=== PATIENT | female | born 1970 | race Caucasian/White ===

== ENCOUNTER 2017-03-27 14:59 | Emergency (ER) | payer OTHER ==
[2017-03-27] MEDS ORDERED: MOTRIN 600 MG PO ONE (15:22)
[2017-03-27] MEDS ORDERED: Zithromax 250 MG TABLET PO ONE (15:22)
[2017-03-27] MEDS ORDERED: MOTRIN 600 MG ONE (15:27)
[2017-03-27] MEDS ORDERED: Zithromax 250 MG TABLET ONE (15:27)
--- NOTE | 2017-03-27 15:28 | ERPHSYRPT ---
- History of Present Illness Time Seen by Provider: 03/27/17 15:16 Source: patient Exam Limitations: no limitations Patient Subjective Stated Complaint: Pt C/O left ear pain that radiates into the side of her face x 4 days. Rates pain 8/10. Triage Nursing Assessment: Pt alert, oriented, answers all questions appropriately. skin pink, warm, dry. Resps non-labored. Pt ambulatory to tx room with steady gait noted holding left side of face. Physician History: FOR THE PAST 4 DAYS PT HAS HAD A LEFT EARACHE; FOR THE PAST 2 DAYS A NON- PRODUCTIVE COUGH. PT DENIES FEVER, CHEST PAIN, NAUSEA, ABDOMINAL PAIN. Allergies/Adverse Reactions: Iodinated Contrast- Oral and IV Dye [IV Dye, Iodine Containing Contrast ] Allergy (Verified 03/27/17 15:15) Shellfish *RETIRED-07/19/12 [Shellfish] Allergy (Verified 03/27/17 15:15) Home Medications: Citalopram Hydrobromide 20 mg* [ceLEXa 20 MG] 20 mg PO DAILY 11/03/13 [ History] Fluticasone/Salmeterol [Advair 250-50 Diskus] 1 each IH DAILY 05/24/14 [History] Albuterol 8 gm Mdi Hfa [Ventolin Hfa MDI] 2 puff IH DAILY 06/12/14 [ History] Metoprolol Tartrate 50 mg PO DAILY 03/28/16 [History] Hx Tetanus, Diphtheria Vaccination/Date Given: Yes (up to date) Hx Influenza Vaccination/Date Given: No Hx Pneumococcal Vaccination/Date Given: No Immunizations Up to Date: Yes - Review of Systems Constitutional: No Fever Ears, Nose, & Throat: Ear Pain Respiratory: Cough, No Dyspnea Cardiac: No Chest Pain Abdominal/Gastrointestinal: No Abdominal Pain, No Nausea, No Vomiting All Other Systems: Reviewed and Negative - Past Medical History Pertinent Past Medical History: Yes Neurological History: No Pertinent History ENT History: No Pertinent History Cardiac History: Hypertension Respiratory History: Asthma, COPD Endocrine Medical History: No Pertinent History Musculoskeletal History: Degenerative Disk Disease, Other GI Medical History: GERD History: No Pertinent History Psycho-Social History: Depression Female Reproductive Disorders: No Pertinent History Other Medical History: chronic back pain - Past Surgical History Past Surgical History: Yes Neuro Surgical History: No Pertinent History Cardiac: No Pertinent History Respiratory: No Pertinent History Gastrointestinal: Appendectomy Musculoskeletal: No Pertinent History Female Surgical History: Section Other Surgical History: RT OOPHORECTOMY ET 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 - Social History Smoking Status: Unknown if ever smoked How long have you smoked: 25 Exposure to second hand smoke: No Drug Use: none Patient Lives Alone: No - Female History Hx Now: No - Nursing Vital Signs Nursing Vital Signs: Initial Vital Signs Temperature 98.6 F 03/27/17 15:12 Pulse Rate 79 03/27/17 15:12 Respiratory Rate 16 03/27/17 15:12 Blood Pressure 160/112 03/27/17 15:12 O2 Sat by Pulse Oximetry 96 03/27/17 15:12 Pain Scale Pain Intensity 8 - Physical Exam General Appearance: alert Eye Exam: PERRL/EOMI Ears, Nose, Throat Exam: moist mucous membranes, TM abnormal (L) (LEFT TM ERYTHEMATOUS), pharyngeal erythema Neck Exam: normal inspection Respiratory Exam: lungs clear Cardiovascular Exam: normal heart sounds Gastrointestinal/Abdomen Exam: soft, normal bowel sounds Back Exam: normal range of motion Neurologic Exam: alert, cooperative Skin Exam: warm, dry SpO2 Interpretation: normal SpO2: 96 Oxygen Delivery: Room Air - Course Nursing assessment & vital signs reviewed: Yes Ordered Tests: Medication Summary Generic Name Dose Route Start Last Admin Trade Name Freq PRN Reason Stop Dose Admin Azithromycin 500 mg 03/27/17 15:22 Zithromax 250 Mg Tablet PO 03/27/17 15:23 STAT ONE Ibuprofen 600 mg 03/27/17 15:22 Motrin 600 Mg PO 03/27/17 15:23 STAT ONE - Departure Time of Disposition: 15:28 Departure Disposition: Home Clinical Impression: LOM, PHARYNGITIS Condition: Stable Critical Care Time: No Referrals: Provider,Unknown [Primary Care Provider] - Instructions: Otitis Media (Middle Ear Infection) Additional Instructions: FOLLOW UP WITH PRIVATE DOCTOR TOMORROW. Prescriptions: Naproxen [Naprosyn] 500 mg PO [id number] PRN #20 tablet PRN Reason: Pain Azithromycin 250 mg [Zithromax 250 MG TABLET] 250 mg PO ZPACK #6 tablet
[2017-03-27 16:01] VITALS: BP 147/92; PULSE 69; O2SAT 95
== END 2017-03-27 16:02 | disposition home or self-care (01) ==
LOC: ED 14:59
DX: H66.92 Otitis media, unspecified, left ear (principal); J02.9 Acute pharyngitis, unspecified
CPT/HCPCS: 99283; A9270-GY